=== PATIENT | male | born 2000 | race Hispanic/Latino ===

== ENCOUNTER 2024-04-24 21:41 | Emergency (ER) | payer OTHER ==
[2024-04-24] MEDS ORDERED: HYDROcodone/Acetaminophen 10/325 mg Tablet ONE (22:44)
[2024-04-24] MEDS ORDERED: Boostrix 0.5 ML (Tdap) VIAL (>/=7 yrs of age) ONE (22:44)
[2024-04-24] MEDS ORDERED: Lidocaine 1% PF 5 ML VIAL ONE (22:44)
[2024-04-25] MEDS ORDERED: Lidocaine 1% PF 5 ML VIAL ONE ×2 (00:37→01:03)
[2024-04-25] MEDS ORDERED: Bacitracin 1 PK ONE (02:20)
== END 2024-04-25 02:28 | disposition home or self-care (01) ==
LOC: ERS 21:41
DX: S61.512A Laceration without foreign body of left wrist, initial encounter (principal); Z23 Encounter for immunization; W26.0XXA Contact with knife, initial encounter
CPT/HCPCS: 12004; 90471; 90715

== ENCOUNTER 2024-05-18 17:59 | Emergency (ER) | payer SELFPAY | END 2024-05-18 18:45 | disposition home or self-care (01) | LOC: ERS 17:59 | DX: S61.412D Laceration without foreign body of left hand, subsequent encounter (principal) ==

== ENCOUNTER 2025-04-11 19:01 | Emergency (ER) | payer SELFPAY | END 2025-04-11 21:12 | disposition home or self-care (01) | LOC: ERS 19:01 | DX: U07.1 COVID-19 (principal) | CPT/HCPCS: 87081; 87428; 87430; 99283 ==

== ENCOUNTER 2025-06-15 08:46 | Emergency (ER) | payer SELFPAY ==
[2025-06-15] MEDS ORDERED: Ondansetron PF 4 MG/2 ML Vial ONE (09:11)
[2025-06-15 10:30] LABS: #Basophils 0.03 10x3/uL (0.0-0.2); #Eosinophils 0.12 10x3/uL (0.0-0.7); #Monocytes 0.50 10x3/uL (0.11-0.59); #Neutrophils 4.10 10x3/uL (1.40-6.50); %Basophils 0.5 % (0.0-1.0); %Eosinophils 1.9 % (0.0-10.0); %Lymphocytes 25.9 % (21.0-51.0); %Monocytes 7.8 % (0.0-10.0); %Neutrophils 63.7 % (42.0-75.0); Hematocrit 46.7 % (42.0-52.0); Hemoglobin 15.4 g/dL (14.0-18.0); Mean Corpuscular Hemoglobin 29.2 pg (27.0-31.0); Mean Corpuscular Volume 88.6 fL (78.0-98.0); Platelet Count 310 10x3/uL (130-400); Red Blood Cell (RBC) Count 5.27 mill/uL (4.70-6.10); White Blood Cell (WBC) Count 6.42 10x3/uL (4.8-10.8)
[2025-06-15] MEDS ORDERED: Famotidine/PF 20 mg/2ml Vial ONE (10:37)
[2025-06-15 10:49] LABS: ALT (SGPT) 15 U/L (Less than 45); AST (SGOT) 26 U/L (11-34); Albumin 4.2 g/dL (3.1-4.5); Alkaline Phosphatase 40 U/L (40-110); Anion Gap 15 mmol/L (10-20); BUN (Urea Nitrogen) 8 mg/dL (8.9-20.6); Bilirubin, Total 0.6 mg/dL (0.3-1.2); Calc. Creatinine Clearance 0 mL/min (70-130); Calcium 9.3 mg/dL (7.8-10.44); Carbon Dioxide 19 mmol/L (22-29); Chloride 109 mmol/L (98-107); Globulin 3.4 g/dL (2.4-3.5); Glucose 96 mg/dL (70-105); Potassium 4.5 mmol/L (3.5-5.1); Sodium 138 mmol/L (136-145)
[2025-06-15 11:12] LABS: Bacteria/HPF None Seen HPF (None Seen); CAUTI Indications for Culture Dysuria,urgency,freq; Glucose, Urine (Dipstick) Normal (Negative); Leukocyte Negative Leu/uL (Negative); Protein, Urine (Dipstick) 10 mg/dL (Neg-Trace); RBC/HPF 0-3 HPF (0-3); Specific Gravity, Urine 1.024 (1.002-1.036); WBC/HPF 0-3 HPF (0-3)
[2025-06-15 11:13] LABS: Urine Culture Reflex No No
== END 2025-06-15 11:49 | disposition home or self-care (01) ==
LOC: ERS 08:46
DX: R11.2 Nausea with vomiting, unspecified (principal)
CPT/HCPCS: 80053; 81001; 83690; 85025; 96361; 96374; 96375; J1308; J2405

== ENCOUNTER 2025-07-25 19:24 | Emergency (ER) | payer SELFPAY | END 2025-07-25 21:06 | disposition home or self-care (01) | LOC: ERS 19:24 | DX: B34.9 Viral infection, unspecified (principal) | CPT/HCPCS: 87081; 87428; 87430; 99283 ==